=== PATIENT | male | born 1970 | race Asian ===

== ENCOUNTER 2016-05-17 13:23 | Emergency (ER) | payer OTHER ==
[~2016-05-17] VITALS: Ht 177.8 cm; Wt 141.5 kg
== END 2016-05-17 15:04 | disposition home or self-care (01) ==
LOC: ED 13:23
DX: M54.5 Low back pain (principal)
CPT/HCPCS: 99281

== ENCOUNTER 2016-07-20 07:01 | Emergency (ER) | payer OTHER ==
[~2016-07-20] VITALS: Ht 177.8 cm; Wt 136.1 kg
== END 2016-07-20 08:00 | disposition home or self-care (01) ==
LOC: ED 07:01
DX: M77.9 Enthesopathy, unspecified (principal)
CPT/HCPCS: 99281

== ENCOUNTER 2016-07-26 22:24 | Emergency (ER) | payer OTHER ==
[~2016-07-26] VITALS: Ht 177.8 cm; Wt 139.7 kg
== END 2016-07-26 23:59 | disposition home or self-care (01) ==
LOC: ED 22:24
DX: M79.1 Myalgia (principal)
CPT/HCPCS: 99283

== ENCOUNTER 2016-10-02 07:16 | Emergency (ER) | payer OTHER ==
[~2016-10-02] VITALS: Ht 177.8 cm; Wt 127.0 kg
== END 2016-10-02 09:26 | disposition home or self-care (01) ==
LOC: ED 07:16
DX: M16.11 Unilateral primary osteoarthritis, right hip (principal); M47.897 Other spondylosis, lumbosacral region
CPT/HCPCS: 99282

== ENCOUNTER 2016-11-24 17:16 | Emergency (ER) | payer OTHER ==
[~2016-11-24] VITALS: Ht 177.8 cm; Wt 127.0 kg
== END 2016-11-24 18:50 | disposition home or self-care (01) ==
LOC: ED 17:16
DX: R50.9 Fever, unspecified (principal); B34.9 Viral infection, unspecified; J01.90 Acute sinusitis, unspecified
CPT/HCPCS: 99282

== ENCOUNTER 2017-04-05 10:01 | Emergency (ER) | payer OTHER ==
[~2017-04-05] VITALS: Ht 177.8 cm; Wt 122.5 kg
== END 2017-04-05 11:30 | disposition home or self-care (01) ==
LOC: ED 10:01
DX: M12.851 Other specific arthropathies, not elsewhere classified, right hip (principal); M16.11 Unilateral primary osteoarthritis, right hip
CPT/HCPCS: 96372; 99283; J1100; J2360

== ENCOUNTER 2017-04-13 05:08 | Emergency (ER) | payer OTHER ==
[~2017-04-13] VITALS: Ht 177.8 cm; Wt 122.5 kg
== END 2017-04-13 06:40 | disposition home or self-care (01) ==
LOC: ED 05:08
DX: G44.009 Cluster headache syndrome, unspecified, not intractable (principal)
CPT/HCPCS: 99283

== ENCOUNTER 2017-05-17 20:42 | Emergency (ER) | payer OTHER ==
[~2017-05-17] VITALS: Ht 177.8 cm; Wt 122.5 kg
== END 2017-05-17 22:35 | disposition home or self-care (01) ==
LOC: ED 20:42
DX: R51 Headache (principal)
CPT/HCPCS: 99283

== ENCOUNTER 2017-07-11 20:24 | Emergency (ER) | payer OTHER ==
[~2017-07-11] VITALS: Ht 177.8 cm; Wt 129.3 kg
== END 2017-07-11 20:50 | disposition home or self-care (01) ==
LOC: ED 20:24
DX: M25.511 Pain in right shoulder (principal)
CPT/HCPCS: 99281

== ENCOUNTER 2020-09-24 08:45 | Emergency (ER) | payer OTHER ==
[~2020-09-24] VITALS: Ht 177.8 cm; Wt 138.3 kg
[2020-09-24 08:50] VITALS: TEMP 97.6
[2020-09-24 09:11] LABS: PLATELET COUNT 353 K/uL (142-355)
[2020-09-24 09:16] LABS: POTASSIUM 3.9 mmol/L (3.6-5.2); SODIUM 139 mmol/L (136-145)
[2020-09-24 09:29] LABS: PARTIAL THROMBOPLASTIN TIME 25.6 SECONDS (24.5-33.6)
[2020-09-24 10:12] VITALS: BP 134/78
== END 2020-09-24 10:12 | disposition home or self-care (01) ==
LOC: ED 08:45
PROVIDERS: Hospitalist
DX: R60.0 Localized edema (principal)
CPT/HCPCS: 36415; 80053; 82550; 83880; 84484; 85027; 85610; 85730; 96374; 99284; J1940

== ENCOUNTER 2021-02-09 16:32 | Emergency (ER) | payer OTHER ==
[~2021-02-09] VITALS: Ht 177.8 cm; Wt 127.0 kg
[2021-02-09 16:39] VITALS: BP 165/94; TEMP 98.9
== END 2021-02-09 17:49 | disposition home or self-care (01) ==
LOC: ED 16:32
DX: R09.81 Nasal congestion (principal); I10 Essential (primary) hypertension; Z91.14 Patient's other noncompliance with medication regimen
CPT/HCPCS: 96372; 99282; J0696

== ENCOUNTER 2021-04-15 19:43 | Emergency (ER) | payer OTHER ==
[~2021-04-15] VITALS: Ht 177.8 cm; Wt 141.1 kg
[2021-04-15 20:55] LABS: PLATELET COUNT 354 K/uL (142-355)
[2021-04-15 21:06] LABS: POTASSIUM 3.9 mmol/L (3.6-5.2)
[2021-04-15 21:30] VITALS: BP 134/76; TEMP 97.8
== END 2021-04-15 21:30 | disposition home health service (06) ==
LOC: ED 19:43
PROVIDERS: Hospitalist
DX: K21.9 Gastro-esophageal reflux disease without esophagitis (principal)
CPT/HCPCS: 36415; 80053; 81000; 83690; 85027; 99283

== ENCOUNTER 2021-05-09 15:05 | Emergency (ER) | payer OTHER ==
[~2021-05-09] VITALS: Ht 177.8 cm; Wt 141.1 kg
[2021-05-09 15:08] VITALS: TEMP 98.6
[2021-05-09 15:48] LABS: PLATELET COUNT 393 K/uL (142-355); POTASSIUM 3.5 mmol/L (3.6-5.2)
[2021-05-09 15:52] LABS: PARTIAL THROMBOPLASTIN TIME 25.5 SECONDS (24.5-33.6)
[2021-05-09 16:12] VITALS: BP 142/84
== END 2021-05-09 16:12 | disposition home or self-care (01) ==
LOC: ED 15:05
PROVIDERS: Emergency Medicine
DX: K92.1 Melena (principal); K59.09 Other constipation; I10 Essential (primary) hypertension
CPT/HCPCS: 36415; 80048; 82272; 85027; 85610; 85730; 99283

== ENCOUNTER 2021-05-28 19:00 | Emergency (ER) | payer OTHER ==
[~2021-05-28] VITALS: Ht 177.8 cm; Wt 141.1 kg
[2021-05-28 20:08] VITALS: BP 158/88
== END 2021-05-28 20:08 | disposition home or self-care (01) ==
LOC: ED 19:00
DX: S16.1XXA Strain of muscle, fascia and tendon at neck level, initial encounter (principal); M62.838 Other muscle spasm; X58.XXXA Exposure to other specified factors, initial encounter; Y92.89 Other specified places as the place of occurrence of the external cause
CPT/HCPCS: 93005; 96372; 99283; J2360; J2930

== ENCOUNTER 2021-08-19 20:53 | Emergency (ER) | payer OTHER ==
[~2021-08-19] VITALS: Ht 177.8 cm; Wt 141.1 kg
[2021-08-19 20:58] VITALS: TEMP 99.1
[2021-08-19 23:45] VITALS: BP 159/96
== END 2021-08-19 23:45 | disposition home or self-care (01) ==
LOC: ED 20:53
DX: M48.061 Spinal stenosis, lumbar region without neurogenic claudication (principal)
CPT/HCPCS: 99283

== ENCOUNTER 2021-08-28 09:04 | Outpatient (CLI) | payer OTHER ==
[2021-08-28 09:22] LABS: PLATELET COUNT 322 K/uL (142-355)
[2021-08-28 09:40] LABS: POTASSIUM 3.7 mmol/L (3.6-5.2)
== END 2021-08-28 20:25 | disposition home or self-care (01) ==
LOC: LABW 09:04
PROVIDERS: ATTEND Nurse Practitioner Family
DX: R60.0 Localized edema (principal); M79.605 Pain in left leg
CPT/HCPCS: 36415; 80053; 85027; 85379

== ENCOUNTER 2021-08-31 10:39 | Outpatient (CLI) | payer OTHER | END 2021-08-31 19:00 | disposition home or self-care (01) | LOC: RAD 10:39 | PROVIDERS: ATTEND Nurse Practitioner Family | DX: M54.17 Radiculopathy, lumbosacral region (principal); M79.605 Pain in left leg ==

== ENCOUNTER 2021-12-08 10:24 | Outpatient (CLI) | payer OTHER | END 2021-12-08 20:22 | disposition home or self-care (01) | LOC: RAD 10:24 | PROVIDERS: ATTEND Nurse Practitioner Primary Care | DX: R20.2 Paresthesia of skin (principal) ==

== ENCOUNTER 2022-07-01 14:06 | Emergency (ER) | payer OTHER ==
[~2022-07-01] VITALS: Ht 177.8 cm; Wt 127.0 kg
[2022-07-01 14:17] VITALS: BP 159/90; TEMP 98.5
== END 2022-07-01 15:07 | disposition home or self-care (01) ==
LOC: ED 14:06
DX: M79.651 Pain in right thigh (principal); M76.891 Other specified enthesopathies of right lower limb, excluding foot; I10 Essential (primary) hypertension
CPT/HCPCS: 96372; 99283; J1885; J2930

== ENCOUNTER 2022-11-10 03:21 | Emergency (ER) | payer OTHER ==
[~2022-11-10] VITALS: Ht 177.8 cm; Wt 122.5 kg
[2022-11-10 03:30] VITALS: TEMP 98
[2022-11-10] MEDS ORDERED: HYDR25TA60 PO (03:41)
[2022-11-10] MEDS ORDERED: LISI20TA11 PO (03:41)
[2022-11-10 04:45] VITALS: BP 153/102
== END 2022-11-10 04:45 | disposition home or self-care (01) ==
LOC: ED 03:21
DX: M54.31 Sciatica, right side (principal); I10 Essential (primary) hypertension
CPT/HCPCS: 96372; 99282; J2930

== ENCOUNTER 2022-11-23 19:34 | Emergency (ER) | payer OTHER ==
[~2022-11-23] VITALS: Ht 177.8 cm; Wt 130.2 kg
[~2022-11-23 19:34] MED LIST: HYDR25TA60 PO; LISI20TA11 PO
[2022-11-23 21:12] VITALS: BP 155/76; TEMP 98.3
== END 2022-11-23 21:12 | disposition home or self-care (01) ==
LOC: ED 19:34
DX: M54.40 Lumbago with sciatica, unspecified side (principal)
CPT/HCPCS: 96372; 99283; J2930